=== PATIENT | female | born 1940 | race Caucasian/White ===

== ENCOUNTER → 2021-07-30 | Outpatient (CLI) | payer BC ==
[~2021-07-30] MED LIST: ASPIRIN81 M2 PO; BACTRIM DS TAB1 EACH PO; CIPROFLOXACIN500 M1 PO; CLOPIDOGREL PO; FLAX SEED OIL1000 MG PO; MAGNESIUM100 MG; NIASPAN ER 101000 M1 PO; PLAVIX 75 MG TA75 M1 PO; POTASSIUM CHLO10 ME1 PO; SYNTHROID100 MCG PO; VITAMIN D1000 UNI1 PO
== END ==
LOC: M.ULTRA 15:00
PROVIDERS: ATTEND Family Medicine
DX: M79.89 Other specified soft tissue disorders (principal); M79.662 Pain in left lower leg; Z95.828 Presence of other vascular implants and grafts

== ENCOUNTER 2021-11-04 07:30 | Emergency (ER) | payer BC ==
[~2021-11-04] VITALS: Ht 162.6 cm; Wt 63.5 kg
[2021-11-04] MEDS ORDERED: PLAVIX 75 MG TA75 MG PO (08:01)
[2021-11-04] MEDS ORDERED: PRINIVIL40 MG PO (08:02)
[2021-11-04] MEDS ORDERED: LIPITOR80 MG PO (08:02)
[2021-11-04] MEDS ORDERED: OMEPRAZOLE 20 M20 M1 PO (08:02)
[2021-11-04 08:12] LABS: ABSOLUTE BASOPHILS 0.1 thou/uL (0.0-0.2); ABSOLUTE EOSINOPHILS 0.2 thou/uL (0.0-0.7); ABSOLUTE LYMPHOCYTES 1.1 thou/uL (0.8-5.3); ABSOLUTE MONOCYTES 0.5 thou/uL (0.0-1.2); ABSOLUTE NEUTROPHILS 3.9 thou/uL (1.6-8.1); BASOPHILS 1.2 %; EOSINOPHILS 3.5 %; HEMATOCRIT 38.5 % (37.0-47.0); HEMOGLOBIN 12.6 gm/dL (12.0-15.0); LYMPHOCYTES 19.6 %; MCH 28.5 pg (26.0-34.0); MCHC 32.8 g/dL (28.0-37.0); MCV 86.7 fL (80.0-100.0); MONOCYTES 8.2 %; NUCLEATED RBCS 0 /100WBC; PLATELET COUNT* 273 thou/uL (150-400); POLYS 67.5 %; RBC 4.45 mil/uL (4.20-5.00); RDW-CV 15.1 % (10.5-14.5); WBC 5.8 thou/uL (4.0-11.0)
[2021-11-04 08:19] LABS: CREATININE 0.9 mg/dL (0.6-1.3); POTASSIUM 3.3 mmol/L (3.5-5.1)
[2021-11-04 08:30] LABS: ALBUMIN 3.6 g/dL (3.4-5.0); MAGNESIUM 2.1 mg/dL (1.8-2.4); TOTAL BILIRUBIN 0.6 mg/dL (<0.1-1.0)
--- NOTE | 2021-11-04 10:27 | EKG ---
[place] [address] ELECTROCARDIOGRAM REPORT Name: ALLEY BLUNT Room: [facility]#: [id number] Admission: 11/04/21 Attend Phys: Discharge: Date of : 38 Date of Service: 11/04/21752 Report #: [id number] THIS REPORT FOR: //name// [facility] ED Test Date: 2021-11-04 Test Time: 07:53:30 Pat Name: ALLEY BLUNT Department: Room: Gender: F [employer]: [facility] [place] : 1940 Requested By: Rad Mireles Order Number: [id number] MD: Kaden Pelletier Measurements Intervals [place] Rate: 58 P: -5 SD: 191 QRS: -3 QRSD: 81 T: 31 QT: 441 QTc: 434 Interpretive Statements Sinus rhythm No previous ECG available for comparison Electronically Signed On 11-04-2021 10:27:21 BEHAVIOR MANAGEMENT SPECIALIST by Kaden Pelletier [email or web address] <ELECTRONICALLY SIGNED> By: Kaden Pelletier MD, [facility] 11/04/21 1027 [id number] Kaden Pelletier MD, FACC /EPI
[2021-11-04] MEDS ORDERED: CIPRO500 M1 PO (10:32)
[2021-11-04] MEDS ORDERED: METRONIDAZOLE500 M4 PO (10:32)
[2021-11-04] MEDS ORDERED: TRANSDERM-SCOP1 EACH TRANSDERM (10:35)
[2021-11-04 10:40] VITALS: BP 160/70
== END 2021-11-04 10:40 | disposition home or self-care (01) ==
LOC: M.ERS 07:30
PROVIDERS: Family Medicine
DX: I10 Essential (primary) hypertension (principal); K52.9 Noninfective gastroenteritis and colitis, unspecified; E03.9 Hypothyroidism, unspecified; Z90.710 Acquired absence of both cervix and uterus; Z90.89 Acquired absence of other organs; Z98.890 Other specified postprocedural states; Z95.828 Presence of other vascular implants and grafts; Z79.82 Long term (current) use of aspirin; Z79.899 Other long term (current) drug therapy; Z88.5 Allergy status to narcotic agent; Z88.4 Allergy status to anesthetic agent